=== PATIENT | male | born 1965 | race Caucasian/White ===

== ENCOUNTER → 2024-01-13 | Outpatient (CLI) | payer MEDICAID | END | disposition home or self-care (01) | LOC: RAD 11:15 | PROVIDERS: ATTEND Podiatrist | DX: M19.071 Primary osteoarthritis, right ankle and foot (principal); M19.072 Primary osteoarthritis, left ankle and foot; L84 Corns and callosities; M21.41 Flat foot [pes planus] (acquired), right foot; M21.6X2 Other acquired deformities of left foot; M21.6X1 Other acquired deformities of right foot; M77.32 Calcaneal spur, left foot; M77.31 Calcaneal spur, right foot | CPT/HCPCS: 73620 ==

== ENCOUNTER 2024-03-11 11:30 | Outpatient (CLI) | payer MEDICAID | END 2024-03-11 23:59 | disposition home or self-care (01) | LOC: RAD 11:30 | PROVIDERS: ATTEND Podiatrist | DX: M77.32 Calcaneal spur, left foot (principal); E11.621 Type 2 diabetes mellitus with foot ulcer | CPT/HCPCS: 73630 ==